=== PATIENT | female | born 1990 | race Caucasian/White ===

== ENCOUNTER 2019-08-21 12:21 | Emergency (ER) | payer BC ==
[~2019-08-21] VITALS: Ht 172.7 cm; Wt 126.6 kg
[2019-08-21 12:29] VITALS: Ht 172.7 cm; Wt 126.6 kg
[2019-08-21 13:20] LABS: CALCIUM 8.7 mg/dL (8.5-10.1); CARBON DIOXIDE 29.5 mmol/L (21-32); CHLORIDE SERUM 104 mmol/L (98-107); CREATININE SERUM 0.7 mg/dL (0.6-1.0); GFR1 > 60 mL/min; GLUCOSE SERUM 94 mg/dL (74-106); POTASSIUM SERUM 3.7 mmol/L (3.5-5.1); SODIUM SERUM 141 mmol/L (136-145)
[2019-08-21 13:25] LABS: ALKALINE PHOSPHATASE 96 U/L (46-116); ALT/SGPT 15 U/L (14-59); AST/SGOT 18 U/L (15-37); BILIRUBIN TOTAL 0.3 mg/dL (0.20-1.00); LIPASE 113 IU/L (73-393); TOTAL PROTEIN, SERUM 8.1 g/dL (6.4-8.2)
[2019-08-21 13:26] LABS: microscopic required? NO
[2019-08-21 14:03] LABS: UA SPECIFIC GRAVITY <=1.005 (1.005-1.035); urine erythrocyte NEGATIVE (NEGATIVE)
[2019-08-21 14:10] LABS: BASOPHIL % 0.5 % (0-2); PLATELET COUNT 222 x10^3mcL (130-400); RED CELL DISTRIBUTION WIDTH 13.5 % (11.5-14.5)
[2019-08-21 17:49] VITALS: BP 120/76
== END 2019-08-21 17:50 | disposition home or self-care (01) ==
LOC: ED 12:21
PROVIDERS: Emergency Medicine
DX: R10.814 Left lower quadrant abdominal tenderness (principal); R19.7 Diarrhea, unspecified; M54.5 Low back pain; Z87.442 Personal history of urinary calculi
CPT/HCPCS: 36415

== ENCOUNTER 2019-09-01 18:26 | Emergency (ER) | payer BC ==
[~2019-09-01] VITALS: Ht 172.7 cm; Wt 127.5 kg
[2019-09-01 18:37] VITALS: Ht 172.7 cm; Wt 127.5 kg
[2019-09-01 19:48] LABS: BASOPHIL % 0.5 % (0-2); PLATELET COUNT 237 x10^3mcL (130-400); RED CELL DISTRIBUTION WIDTH 13.5 % (11.5-14.5)
[2019-09-01 20:04] LABS: CALCIUM 8.6 mg/dL (8.5-10.1); CARBON DIOXIDE 31.5 mmol/L (21-32); CHLORIDE SERUM 105 mmol/L (98-107); CREATININE SERUM 0.7 mg/dL (0.6-1.0); GFR1 > 60 mL/min; GLUCOSE SERUM 93 mg/dL (74-106); POTASSIUM SERUM 3.5 mmol/L (3.5-5.1); SODIUM SERUM 144 mmol/L (136-145)
[2019-09-01 20:09] LABS: ALBUMIN 3.8 g/dL (3.4-5.0); ALKALINE PHOSPHATASE 61 U/L (46-116); ALT/SGPT 16 U/L (14-59); AMYLASE 42 U/L (25-115); AST/SGOT 14 U/L (15-37); BILIRUBIN TOTAL 0.4 mg/dL (0.20-1.00); LIPASE 102 IU/L (73-393); TOTAL PROTEIN, SERUM 7.4 g/dL (6.4-8.2)
[2019-09-01 20:12] LABS: microscopic required? YES; urine erythrocyte 3+ (NEGATIVE)
[2019-09-01 23:42] VITALS: BP 100/59
== END 2019-09-01 23:42 | disposition home or self-care (01) ==
LOC: ED 18:26
PROVIDERS: Emergency Medicine
DX: K52.9 Noninfective gastroenteritis and colitis, unspecified (principal); Z87.442 Personal history of urinary calculi
CPT/HCPCS: J1885; J2270; J2405; J2550

== ENCOUNTER 2020-04-03 16:09 | Emergency (ER) | payer BC, SELFPAY ==
[~2020-04-03] VITALS: Ht 172.7 cm; Wt 136.1 kg
[2020-04-03 17:21] VITALS: Ht 172.7 cm; Wt 136.1 kg
[2020-04-03 19:00] VITALS: BP 128/73
== END 2020-04-03 18:44 | disposition home or self-care (01) ==
LOC: ED 16:09
DX: R06.02 Shortness of breath (principal); Z20.828 Contact with and (suspected) exposure to other viral communicable diseases; Z87.442 Personal history of urinary calculi
CPT/HCPCS: Q0092; U0003-CS

== ENCOUNTER 2020-06-18 17:13 | Emergency (ER) | payer BC ==
[~2020-06-18] VITALS: Ht 172.7 cm; Wt 142.4 kg
[2020-06-18 17:29] VITALS: BP 128/82; Ht 172.7 cm; Wt 142.4 kg
== END 2020-06-18 18:04 | disposition home or self-care (01) ==
LOC: ED 17:13
DX: H20.9 Unspecified iridocyclitis (principal); Z87.442 Personal history of urinary calculi